=== PATIENT | female | born 1985 | race Caucasian/White ===

== ENCOUNTER 2018-04-10 11:28 | Emergency (ER) | payer OTHER ==
[2018-04-10 13:05] LABS: Urine Blood NEGATIVE (NEG); Urine Glucose NEGATIVE (NEG); Urine Protein NEGATIVE (NEG); Urine pH 6.5 (5.0-7.0)
--- NOTE | 2018-04-10 13:05 | RAD REPORT ---
EXAM DESCRIPTION: RAD - Ankle Left 3 View -04/10/2018 12:45 pm CLINICAL HISTORY: Left ankle pain status post injury FINDINGS: No fracture or dislocation is seen.
--- NOTE | 2018-04-10 14:07 | EDPHYS ---
Physician Documentation [facility] Name: Stephanie Crandall Age: 32 yrs Sex: Female : 1985 Arrival Date: 04/10/2018 Time: 11:30 Bed 12 Private MD: Vaibhav Frankel C ED Physician Keny Grey HPI: 04/10 12:43 This 32 yrs old Female presents to ER via Wheelchair with complaints of Ankle jmm Injury. 12:43 The patient presents with an injury, pain. Onset: The symptoms/episode began/occurred jmm acutely, just prior to arrival. This is a 32 year old female currently 17 weeks IUP that presents to the ED with left ankle pain. Patient states she rolled her ankle and felt a pop. . 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 - Social history:: Smoking status: Patient/guardian denies using tobacco, Patient/guardian denies using alcohol. - Ebola Screening: : No symptoms or risks identified at this time. ROS: 12:43 Constitutional: Negative for fever, chills, and weight loss. jmm 12:43 MS/extremity: Positive for pain. 12:43 All other systems are negative. Exam: 12:43 Head/Face: atraumatic. jmm 12:43 Constitutional: The patient appears in no acute distress, alert, awake. 12:43 Cardiovascular: Rate: normal. 12:43 Respiratory: the patient does not display signs of respiratory distress, Respirations: normal. 12:43 Musculoskeletal/extremity: pain on palpation of the left lateral malleolus, no pain on palpation at the base of the 5th metatarsal, full dorsalis pedis pulse. 12:43 Skin: Appearance: Color: normal in color. 12:43 Neuro: Orientation: is normal, Mentation: is normal, Memory: is normal. 12:43 Psych: Behavior/mood is pleasant, cooperative. Vital Signs: 11:41 BP 121 / 82; Pulse 104; Resp 18; Temp 98.2; Pulse Ox 100% ; Weight 71.67 kg; Height 5 sv ft. 6 in. (167.64 cm); Pain 0/10; 11:41 Body Mass Index 25.50 (71.67 kg, 167.64 cm) sv Procedures: 13:30 Splinting: Splint applied to left lateral ankle using Ortho 3D boot, applied by nurse. arturo Examined by me, post splint application: neurovascular intact, 2+ distal pulses palpable, brisk capillary refill noted, Patient tolerated well. MDM: 12:35 Patient medically screened. [facility] 12:48 Data reviewed: vital signs, nurses notes. [facility] 13:30 Data reviewed: radiologic studies, plain films. Counseling: I had a detailed discussion arturo with the patient and/or guardian regarding: the historical points, exam findings, and any diagnostic results supporting the discharge/admit diagnosis, the presence of at least one elevated blood pressure reading (>120/80) during this emergency department visit, radiology results, the need for outpatient follow up, to return to the emergency department if symptoms worsen or persist or if there are any questions or concerns that arise at home. 04/10 12:57 Order name: Urine Dipstick--Ancillary (enter results); Complete Time: 13:05 bd 04/10 12:57 Order name: Urine --Ancillary (enter results); Complete Time: 13:05 bd 04/10 11:42 Order name: Ankle Left 3 View XRAY; Complete Time: 13:06 sv 04/10 13:07 Order name: Splint; Complete Time: 14:25 [facility] Administered Medications: No medications were administered Disposition: 16:50 Co-signature as Attending Physician, Keny Grey MD. rn Disposition: 04/10/18 14:06 Discharged to Home. Impression: Sprain of ankle. - Condition is Stable. - Discharge Instructions: Ankle Sprain. - Work release form, Medication Reconciliation Form, Thank You Letter, Antibiotic Education, Prescription Opioid Use, Family Work Release form. - Follow up: Kyler Fuentes MD; When: 2 - 3 days; Reason: Continuance of care. Signatures: Dispatcher [employer] Fior Luna RN RN sv Mickail, Joel, PA PA jmm Williams, Irene, RN RN iw Nieto, Roman, MD MD rn perioperative: (The following items were deleted from the chart) 14:25 14:06 04/10/2018 14:06 Discharged to Home. Impression: Sprain of ankle. Condition is iw Stable. Forms are Medication Reconciliation Form, Thank You Letter, Antibiotic Education, Prescription Opioid Use. Follow up: Kyler Fuentes; When: 2 - 3 days; Reason: Continuance of care. arturo
--- NOTE | 2018-04-10 14:07 | ER ---
Nurse's Notes [facility] Name: Stephanie Crandall Age: 32 yrs Sex: Female : 1985 Arrival Date: 04/10/2018 Time: 11:30 Bed 12 Private MD: Vaibhav Frankel C Diagnosis: Sprain of ankle Presentation: 04/10 11:39 Presenting complaint: Patient states: tripped into a hole and c/o left ankle pain. Pt sv fell onto her buttocks. Pt is 17 weeks , denies abd pain or injury. Transition of care: patient was not received from another setting of care. Onset of symptoms was April 10, 2018. Risk Assessment: Do you want to hurt yourself or someone else? Patient reports no desire to harm self or others. Initial Sepsis Screen: Does the patient meet any 2 criteria? No. Patient's initial sepsis screen is negative. Does the patient have a suspected source of infection? No. Patient's initial sepsis screen is negative. Care prior to arrival: None. 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 - Social history:: Smoking status: Patient/guardian denies using tobacco, Patient/guardian denies using alcohol. - Ebola Screening: : No symptoms or risks identified at this time. Screenin:36 Abuse screen: Denies threats or abuse. Denies injuries from another. Nutritional iw screening: No deficits noted. Tuberculosis screening: No symptoms or risk factors identified. Fall Risk None identified. Assessment: 12:36 General: Appears in no apparent distress. Behavior is calm, cooperative. Pain: iw Complains of pain in left lateral ankle. Neuro: Level of Consciousness is awake, alert, obeys commands, Oriented to person, place, time, situation, Moves all extremities. Full function. Cardiovascular: Patient's skin is warm and dry. Respiratory: Respiratory effort is even, unlabored, Respiratory pattern is regular, symmetrical. Derm: Skin is pink, warm \T\ dry. normal. Musculoskeletal: Range of motion: intact in all extremities, Reports pain in left lateral ankle. Vital Signs: 11:41 BP 121 / 82; Pulse 104; Resp 18; Temp 98.2; Pulse Ox 100% ; Weight 71.67 kg; Height 5 sv ft. 6 in. (167.64 cm); Pain 0/10; 11:41 Body Mass Index 25.50 (71.67 kg, 167.64 cm) sv ED Course: 11:30 Patient arrived in ED. mr 11:30 Vaibhav Frankel MD is Private Physician. mr 11:40 Triage completed. sv 11:42 Arm band placed on right wrist. sv 12:23 Edwin Espinosa PA is PHCP. jmm 12:23 Keny Grey MD is Attending Physician. jmm 12:25 Adamaris Lang, RN is Primary Nurse. iw 12:37 No provider procedures requiring assistance completed. Patient did not have IV access iw during this emergency room visit. 12:44 Ankle Left 3 View XRAY In Process Unspecified. EDMS 12:46 X-ray completed. Portable x-ray completed in exam room. Patient tolerated procedure mh1 well. 14:06 Kyler Fuentes MD is Referral Physician. jmm 14:24 Patient has correct armband on for positive identification. iw Administered Medications: No medications were administered Outcome: 14:06 Discharge ordered by . jmm 14:24 Discharged to home ambulatory. iw 14:24 Condition: good 14:24 Discharge instructions given to patient, Instructed on discharge instructions, follow up and referral plans. Demonstrated understanding of instructions, follow-up care. 14:25 Patient left the ED. iw Signatures: Dispatcher [employer] Fior uLna, RN RN Edwin Espinosa PA PA jmm Rivera, Maria Lizzy Hardin 1 Adamaris Lang, VALERIA RN iw
== END 2018-04-10 14:25 | disposition home or self-care (01) ==
LOC: ER 11:28
DX: S93.402A Sprain of unspecified ligament of left ankle, initial encounter (principal); W01.0XXA Fall on same level from slipping, tripping and stumbling without subsequent striking against object, initial encounter; Y93.9 Activity, unspecified; Y92.9 Unspecified place or not applicable; Z3A.17 17 weeks gestation of pregnancy
CPT/HCPCS: 81003; 81025; 99283

== ENCOUNTER 2019-02-15 07:19 | Emergency (ER) | payer OTHER ==
--- OUTSIDE RECORDS SUMMARY | 2019-02-15 07:22 | XMS REPORT ---
:1985 [facility] [address] [place] [address] Care Team Providers Name Role Phone Unavailable Unavailable Unavailable Payers Payer Name Policy Type Policy Number Effective Date Expiration Date Problems This patient has no known problems. Allergies, Adverse Reactions, Alerts Allergy Allergy Status Severity Reaction(s) Onset Inactive Treating Comments Name Type Date Date Clinician No Known DA Active U 2018-09 Allergies -07 00:00:0 0 Medications This patient has no known medications.
[2019-02-15 07:52] LABS: Absolute Lymphocytes (CBC) 0.7 K/uL (0.7-4.9); Absolute Monocytes 0.6 K/uL (0.1-1.3); Absolute Neutrophil 9.6 K/uL (1.8-8.0); Basophils % 0.1 % (0-1.3); Eosinophils % 0.1 % (0-4.4); Hematocrit 44.9 % (36.0-45.0); Lymphocytes % 6.6 % (15.3-44.8); MPV 8.8 fL (7.6-11.3); Monocytes % 5.2 % (3.3-12.3); RBC Red Blood Cell Count 5.44 M/uL (3.86-4.86)
[2019-02-15] MEDS ORDERED: ONDANSETRON 4 MG/2 ML VIAL ONE (07:52)
[2019-02-15] MEDS ORDERED: NA CHLORIDE 0.9% 1,000 ML ONE (07:52)
[2019-02-15 08:08] LABS: BUN Blood Urea Nitrogen 11 mg/dL (7-18); Bicarbonate 24 mmol/L (21-32); Glucose Level 89 mg/dL (74-106); Potassium 3.7 mmol/L (3.5-5.1); Sodium Level 138 mmol/L (136-145)
[2019-02-15 09:01] LABS: Blood Morphology Comment NOT SEEN (NOT SEEN); Platelet Estimate ADEQ; Urine White Blood Cell Casts OK
[2019-02-15 09:19] LABS: Urine Blood NEGATIVE (NEG); Urine Glucose NEGATIVE (NEG); Urine Protein NEGATIVE (NEG); Urine Specific Gravity <1.005 (1.005-1.030); Urine pH 5.5 (5.0-7.0)
--- NOTE | 2019-02-15 09:21 | EDPHYS ---
Physician Documentation [facility] Name: Stephanie Crandall Age: 33 yrs Sex: Female : 1985 Arrival Date: 02/15/2019 Time: 07:21 Bed 6 Private MD: Vaibhav Frankel C ED Physician Keny Grey HPI: 02/15 09:15 This 33 yrs old Female presents to ER via Ambulatory with complaints of Flu kb Symptoms. 09:16 The patient or guardian reports flu symptoms, myalgias. Onset: The symptoms/episode kb began/occurred this morning. Severity of symptoms: At their worst the symptoms were moderate, in the emergency department the symptoms are unchanged. Modifying factors: The symptoms are alleviated by nothing, the symptoms are aggravated by nothing. Associated signs and symptoms: Pertinent positives: nausea, Pertinent negatives: chest pain, diarrhea, ear ache, fever, rhinorrhea, sore throat, vomiting. The patient has not experienced similar symptoms in the past. The patient has not recently seen a physician. Pt reports she started feeling sick yesterday, woke up this morning with body aches, nausea and chills. States "It seems like mono symptoms." Denies fever, vomiting, diarrhea, cough, congestion, urinary symptoms. . 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 - Social history:: Smoking status: Patient/guardian denies using tobacco. - Ebola Screening: : No symptoms or risks identified at this time. ROS: 09:15 ENT: Negative for injury, pain, and discharge, Neck: Negative for injury, pain, and kb swelling, Cardiovascular: Negative for chest pain, palpitations, and edema, Respiratory: Negative for shortness of breath, cough, wheezing, and pleuritic chest pain, Back: Negative for injury and pain, MS/Extremity: Negative for injury and deformity, Skin: Negative for injury, rash, and discoloration, Neuro: Negative for headache, weakness, numbness, tingling, and seizure. 09:15 Constitutional: Positive for body aches, chills, Negative for fatigue, fever, malaise, poor PO intake. 09:15 Abdomen/GI: Positive for nausea, Negative for abdominal pain, vomiting, diarrhea. Exam: 09:12 Constitutional: This is a well developed, well nourished patient who is awake, alert, kb and in no acute distress. Head/Face: Normocephalic, atraumatic. ENT: Nares patent. No nasal discharge, no septal abnormalities noted. Tympanic membranes are normal and external auditory canals are clear. Oropharynx with no redness, swelling, or masses, exudates, or evidence of obstruction, uvula midline. Mucous membranes moist. Neck: Trachea midline, no thyromegaly or masses palpated, and no cervical lymphadenopathy. Supple, full range of motion without nuchal rigidity, or vertebral point tenderness. No Meningismus. Chest/axilla: Normal chest wall appearance and motion. Nontender with no deformity. No lesions are appreciated. Cardiovascular: Regular rate and rhythm with a normal S1 and S2. No gallops, murmurs, or rubs. Normal PMI, no JVD. No pulse deficits. Respiratory: Lungs have equal breath sounds bilaterally, clear to auscultation and percussion. No rales, rhonchi or wheezes noted. No increased work of breathing, no retractions or nasal flaring. Abdomen/GI: Soft, non-tender, with normal bowel sounds. No distension or tympany. No guarding or rebound. No evidence of tenderness throughout. Skin: Warm, dry with normal turgor. Normal color with no rashes, no lesions, and no evidence of cellulitis. MS/ Extremity: Pulses equal, no cyanosis. Neurovascular intact. Full, normal range of motion. Neuro: Awake and alert, GCS 15, oriented to person, place, time, and situation. Cranial nerves II-XII grossly intact. Motor strength 5/5 in all extremities. Sensory grossly intact. Cerebellar exam normal. Normal gait. Vital Signs: 07:28 BP 130 / 99; Pulse 129; Resp 16 S; Temp 99.0(O); Pulse Ox 99% on R/A; Weight 72.57 kg aa5 (R); Height 5 ft. 5 in. (165.10 cm) (R); Pain 5/10; 09:00 BP 104 / 71; Pulse 99; Resp 16 S; Temp 99.1(O); Pulse Ox 99% on R/A; Pain 5/10; aa5 07:28 Body Mass Index 26.63 (72.57 kg, 165.10 cm) aa5 MDM: 07:24 Patient medically screened. kb 09:12 Data reviewed: vital signs, nurses notes. Data interpreted: Pulse oximetry: on room air kb is 99 %. Interpretation: normal. Counseling: I had a detailed discussion with the patient and/or guardian regarding: the historical points, exam findings, and any diagnostic results supporting the discharge/admit diagnosis, lab results, the need for outpatient follow up, a family practitioner, to return to the emergency department if symptoms worsen or persist or if there are any questions or concerns that arise at home. 02/15 07:29 Order name: CBC with Diff; Complete Time: 09:03 kb 02/15 07:29 Order name: Basic Metabolic Panel; Complete Time: 08:11 kb 02/15 07:29 Order name: Maries Screen Profile; Complete Time: 08:32 kb 02/15 07:29 Order name: Flu; Complete Time: 08:11 kb 02/15 07:58 Order name: CBC Smear Scan; Complete Time: 09:03 EDMS 02/15 08:08 Order name: Urine Dipstick--Ancillary (enter results); Complete Time: 09:22 bd 02/15 07:29 Order name: IV Start; Complete Time: 07:45 kb 02/15 07:29 Order name: Urine Dipstick-Ancillary (obtain specimen); Complete Time: 08:11 kb 02/15 08:09 Order name: Test, Serum; Complete Time: 08:46 ss 02/15 09:27 Order name: PO challenge; Complete Time: 09:51 kb Administered Medications: 08:00 Drug: NS 0.9% 1000 ml Route: IV; Rate: 1000 ml; Site: right antecubital; aa5 08:00 Drug: Zofran 4 mg Route: IVP; Site: right antecubital; aa5 Disposition: 02/15/19 09:20 Discharged to Home. Impression: Dehydration. - Condition is Stable. - Discharge Instructions: Dehydration, Adult. - Prescriptions for Zofran 4 mg Oral Tablet - take 1 tablet by ORAL route every 6 hours As needed; 20 tablet. - Medication Reconciliation Form, Thank You Letter, Antibiotic Education, Prescription Opioid Use, Work release form form. - Follow up: Emergency Department; When: As needed; Reason: Worsening of condition. Follow up: Private Physician; When: 2 - 3 days; Reason: Recheck today's complaints, Continuance of care, Re-evaluation by your physician. Signatures: Dispatcher [employer] EDSally Matute, ADELA-Viridiana CHAPMAN-Kyler Guillen RN RN Lyssa Aponte RN RN aa5 Corrections: (The following items were deleted from the chart) 08:11 07:29 Urine Test ordered. natasha aa5 09:57 09:20 02/15/2019 09:20 Discharged to Home. Impression: Dehydration. Condition is sg Stable. Forms are Medication Reconciliation Form, Thank You Letter, Antibiotic Education, Prescription Opioid Use. Follow up: Emergency Department; When: As needed; Reason: Worsening of condition. Follow up: Private Physician; When: 2 - 3 days; Reason: Recheck today's complaints, Continuance of care, Re-evaluation by your physician. kb
--- NOTE | 2019-02-15 09:21 | ER ---
Nurse's Notes [facility] Name: Stephanie Crandall Age: 33 yrs Sex: Female : 1985 Arrival Date: 02/15/2019 Time: 07:21 Bed 6 Private MD: Vaibhav Frankel C Diagnosis: Dehydration Presentation: 02/15 07:23 Presenting complaint: Patient states: "yesterday I felt nauseated and just didn't feel aa5 good but today I woke up with body aches and my whole back hurts". Pt denies urinary symptoms, denies sore throat, cough, and congestion. Reports chills yesterday. 07:23 Transition of care: patient was not received from another setting of care. Onset of aa5 symptoms was February 14, 2019. Risk Assessment: Do you want to hurt yourself or someone else? Patient reports no desire to harm self or others. Care prior to arrival: None. 07:23 Acuity: AIME 3 aa5 07:23 Method Of Arrival: Ambulatory aa5 07:23 Initial Sepsis Screen: Does the patient meet any 2 criteria? HR > 90 bpm. Does the aa5 patient have a suspected source of infection? No. Patient's initial sepsis screen is negative. 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 - Social history:: Smoking status: Patient/guardian denies using tobacco. - Ebola Screening: : No symptoms or risks identified at this time. Assessment: 07:25 General: Appears comfortable, Behavior is calm, cooperative. Pain: Complains of pain in aa5 whole body and back Pain currently is 5 out of 10 on a pain scale. Quality of pain is described as aching, Pain began this morning Is continuous. Neuro: Level of Consciousness is awake, alert, obeys commands, Oriented to person, place, time, situation. Cardiovascular: Heart tones S1 S2 present Rhythm is regular. Respiratory: Airway is patent Respiratory effort is even, unlabored, Respiratory pattern is regular, symmetrical, Breath sounds are clear bilaterally. GI: Abdomen is round Bowel sounds present X 4 quads. Abd is soft X 4 quads Reports nausea, Patient currently denies vomiting. : Denies burning with urination, urinary frequency, urgency. EENT: No signs and/or symptoms were reported regarding the EENT system. Derm: Skin is pink, warm \\T\\ dry. Musculoskeletal: Range of motion: intact in all extremities. 09:06 Reassessment: Patient is alert, oriented x 3, equal unlabored respirations, skin aa5 warm/dry/pink. Awaiting disposition. Vital Signs: 07:28 BP 130 / 99; Pulse 129; Resp 16 S; Temp 99.0(O); Pulse Ox 99% on R/A; Weight 72.57 kg aa5 (R); Height 5 ft. 5 in. (165.10 cm) (R); Pain 5/10; 09:00 BP 104 / 71; Pulse 99; Resp 16 S; Temp 99.1(O); Pulse Ox 99% on R/A; Pain 5/10; aa5 07:28 Body Mass Index 26.63 (72.57 kg, 165.10 cm) aa5 ED Course: 07:21 Patient arrived in ED. as 07:21 Vaibhav Frankel MD is Private Physician. as 07:21 Sally Jules FNP-C is [facility]. kb 07:21 Keny Grey MD is Attending Physician. kb 07:23 Arm band placed on Patient placed in an exam room, on a stretcher. aa5 07:29 Lyssa Caro RN is Primary Nurse. aa5 07:34 Triage completed. aa5 07:42 Initial lab(s) drawn, by mn, sent to lab. Inserted saline lock: 20 gauge in right dh3 antecubital area, using aseptic technique. Blood collected. 09:02 Primary Nurse role handed off by Lyssa Caro RN 09:02 Kyler Atkins, RN is Primary Nurse. sg 09:09 Report given to Kyler Atkins RN. aa5 09:28 Diet: Patient given water. sg Administered Medications: 08:00 Drug: NS 0.9% 1000 ml Route: IV; Rate: 1000 ml; Site: right antecubital; aa5 08:00 Drug: Zofran 4 mg Route: IVP; Site: right antecubital; aa5 Outcome: 09:20 Discharge ordered by . kb 09:57 Patient left the ED. sg Signatures: Sally Jules, ROBSON CHAPMAN-Kyler Guillen RN RN Dottie Ross Audri, RN RN aa5 Angi Wills 3
== END 2019-02-15 09:57 | disposition home or self-care (01) ==
LOC: ER 07:19
DX: E86.0 Dehydration (principal); R11.0 Nausea
CPT/HCPCS: 36415; 80048; 81003; 84703; 85025; 86308; 87804; J2405; J7030

== ENCOUNTER 2022-02-11 20:12 | Emergency (ER) | payer OTHER ==
--- OUTSIDE RECORDS SUMMARY | 2022-02-11 20:16 | XMS REPORT | Continuity of Care Document ---
:1985 Author Organization [facility] t Address [address] [place] [address] Care Team Providers Name Role Phone Unavailable Unavailable Unavailable Payers Payer Name Policy Type Policy Number Effective Date Expiration Date S ource Problems This patient has no known problems. Allergies, Adverse Reactions, Alerts Allergy Allergy Status Severity Reaction(s) Onset Inactive Treating Comm ents Source Name Type Date Date Clinician No Known DA Active U 2019-0 [facility] [place] [facility] No Known DA Active U 2017- [facility] [place] [facility] Medications This patient has no known medications. Procedures This patient has no known procedures. Results Test Description Test Time Test Comments Results Result [facility] e Comments - MRI [facility] 2019-04-29 Patient Name: W/CONTRAST LT 13:14:00 VANESSA SHAFER Unit No: [id number] EXAMS: CPT CODE: [id number] MRI LW JNT W/[place] [address] MRI ARTHROGRAM LEFT HIP DIAGNOSIS: 1. There is moderate to marked attenuation and irregularity of the anterior labrum with irregular signal undermining the anterior labrum compatible with a moderately displaced tear. There is a minimally displaced discrete superior labral tear. INDICATION: Left hip pain COMPARISON: None PULSE SEQUENCES: Multiplanar, multisequence MRI is obtained for left hip post arthrography. There is satisfactory contrast distention of the left hip joint. Acetabular labral tear as described. The ligamentum teres and transverse ligaments are intact. Articular surfaces are smooth. No aggressive osseous lesion or acute fracture. The iliopsoas, rectus femoris, gluteal, and hamstring tendons are normal. No muscle belly atrophy or edema. No iliopsoas or trochanteric bursal fluid to suggest bursitis. No evidence of ischiofemoral impingement. The visualized pelvic structures are normal. There are no regional soft tissue abnormalities or aggressive osseous lesions. LEFT HIP ARTHROGRAM WITH INTRA-ARTICULAR STEROID INJECTION Comment: After informed consent was obtained a 25-gauge needle is inserted into the left hip joint under fluoroscopic control using sterile technique. A total volume of 8 mL consisting of a combination of equal parts Isovue-300 and dilute gadolinium is instilled into the joint space. This is followed by intra-articular injection of 2 mL of Kenalog 40 mg/mL and 2 mL of lidocaine. The patient tolerated the procedure well. 0.5 minutes of fluoroscopy time was used on this exam. Post arthrographic films show no extravasation of contrast outside the joint. at 1314 Reported and signed by: Annabelle Rosas MD [facility] NAME: VANESSA SHAFER [address] [facility] PHYS: GOMMU. - Frances Dorman : 1985 AGE: 33 SEX: F [place], [place] [address] LOC: Y.RAD PHONE #: [phone] EXAM DATE: 04/29/2019 STATUS: REG CLI FAX #: [phone] RAD #: D/C DT PAGE 1 Signed Report (CONTINUED) Patient Name: VANESSA SHAFER Unit No: [id number] EXAMS: CPT CODE: [id number] MRI LW JNT W/[place] [address] <Continued> CC: Frances Dorman MD Technologist: Cary Medrano RRosiTRosi(R) Transcribed D/ (9829) [email or web address] [facility] NAME: VANESSA SHAFER [address] [facility] PHYS: GOMMU. - Frances Dorman : 1985 AGE: 33 SEX: F [place], [place] [address] LOC: Y.RAD PHONE #: [phone] EXAM DATE: 04/29/2019 STATUS: REG CLI FAX #: [phone] RAD #: D/C DT PAGE 2 Signed Report Patient Name: VANESSA SHAFER Unit No: [id number] EXAMS: CPT CODE: [id number] MRI LW JNT W/[place] [address] <Continued> Orig Print D/T: S: 04/29/2019 (1317) [facility] NAME: VANESSA SHAFER [address] [facility] PHYS: [email or web address] - Gombera,Mufaddal M : 1985 AGE: 33 SEX: F [place] [address] LOC: Y.RAD PHONE #: [phone] EXAM DATE: 04/29/2019 STATUS: REG CLI FAX #: [phone] RAD #: D/C DT PAGE 3 Signed Report - XR ARTHROGRAM 2019-04-29 Patient Name: HIP W/O AN LT+ 13:14:00 VANESSA SHAFER Unit No: [id number] EXAMS: CPT CODE: [id number] XR ARTHROGRAM HIP W/O AN LT+ 15898 MRI ARTHROGRAM LEFT HIP DIAGNOSIS: 1. There is moderate to marked attenuation and irregularity of the anterior labrum with irregular signal undermining the anterior labrum compatible with a moderately displaced tear. There is a minimally displaced discrete superior labral tear. INDICATION: Left hip pain COMPARISON: None PULSE SEQUENCES: Multiplanar, multisequence MRI is obtained for left hip post arthrography. There is satisfactory contrast distention of the left hip joint. Acetabular labral tear as described. The ligamentum teres and transverse ligaments are intact. Articular surfaces are smooth. No aggressive osseous lesion or acute fracture. The iliopsoas, rectus femoris, gluteal, and hamstring tendons are normal. No muscle belly atrophy or edema. No iliopsoas or trochanteric bursal fluid to suggest bursitis. No evidence of ischiofemoral impingement. The visualized pelvic structures are normal. There are no regional soft tissue abnormalities or aggressive osseous lesions. LEFT HIP ARTHROGRAM WITH INTRA-ARTICULAR STEROID INJECTION Comment: After informed consent was obtained a 25-gauge needle is inserted into the left hip joint under fluoroscopic control using sterile technique. A total volume of 8 mL consisting of a combination of equal parts Isovue-300 and dilute gadolinium is instilled into the joint space. This is followed by intra-articular injection of 2 mL of Kenalog 40 mg/mL and 2 mL of lidocaine. The patient tolerated the procedure well. 0.5 minutes of fluoroscopy time was used on this exam. Post arthrographic films show no extravasation of contrast outside the joint. at 4368 Reported and signed by: Annabelle Rosas MD [facility] NAME: VANESSA SHAFER [address] [facility] PHYS: [email or web address].Caio - Frances Dorman : 1985 AGE: 33 SEX: F [place] [address] LOC: Y.RAD PHONE #: [phone] EXAM DATE: 04/29/2019 STATUS: REG CLI FAX #: [phone] RAD #: D/C DT PAGE 1 Signed Report (CONTINUED) Patient Name: VANESSA SHAFER Unit No: [id number] EXAMS: CPT CODE: [id number] XR ARTHROGRAM HIP W/O AN LT+ 82063 <Continued> CC: Frances Dorman MD Technologist: Daily Bentley RT.(R) Transcribed D/ (8089) [email or web address] [facility] NAME: VANESSA SHAFER [address] [facility] PHYS: GOMMU. - Frances Dorman : 1985 AGE: 33 SEX: F [place] [address] LOC: Y.RAD PHONE #: [phone] EXAM DATE: 04/29/2019 STATUS: REG CLI FAX #: [phone] RAD #: D/C DT PAGE 2 Signed Report Patient Name: VANESSA SHAFER Unit No: [id number] EXAMS: CPT CODE: [id number] XR ARTHROGRAM HIP W/O AN LT+ [address]113 <Continued> Orig Print D/T: S: 04/29/2019 (1317) [facility] NAME: VANESSA SHAFER [address] [facility] PHYS: GOMMU.Caio - MayojazzriaFrances : 1985 AGE: 33 SEX: F [place], [place] [address] LOC: Y.RAD PHONE #: [phone] EXAM DATE: 04/29/2019 STATUS: REG CLI FAX #: [phone] RAD #: D/C DT PAGE 3 Signed Report PLACENTA THIRD 2018-09-30 TRIMESTER 13:37:00 ----RUN DATE: 09/30/18 [facility] PAGE 1 RUN TIME: 1913 Specimen Inquiry RUN USER: INTERFACE ----PATIENT: [facility]ANES[facility]AFER [facility] #: [id number] AGE/SX: 32/F ROOM: [facility] RE09/25/18REG DR: Fior Cartagena MD : [birth year] BED: A DIS: 09/30/18 STATUS: DIS IN TLOC: ---- SPEC #: [id number] RECD: 09/26/18 STATUS: FREDO BARRIOS #: [id number] [place]: 09/26/18- SUBM DR: Fior Cartagena MD ENTERED: 09/28/18 SP TYPE: PLACIII OTHR DR: ORDERED: LEVEL V SURGICA CODES: [id number] - PLACENTA, NOS PROCEDURES: LEVEL V SURGICA (Incomplete) TISSUES: PLACENTA, NOS - PLACENTA CLINICAL HISTORY 32 year old, 41.2 weeks, , chorioamnionitis (kr) FINAL DIAGNOSIS Placenta, bueno gestation: - postterm placenta - moderate acute chorioamnionitis (see comment) - mild to moderate acute funisitis (see comment) - umbilical cord: insertion 5 cm from margin, 3-vessel, 2 cm length - increased placental weight: actual 801 gm (greater than 90th percentile) Tissue code 1 CPT code(s): 06383 cds/wpd GROSS DESCRIPTION The specimen was received in a container, labeled with the patient's name, unit number and designated "placenta". The following attributes are observed: Cord insertion: 5 cm from margin Cord length: 2 cm Number of vessels: 3 Cord color: Mxtb-syv-qzizauqz green Other cord findings: None surface findings: Blue-green, and contains unremarkable blood vasculature Vasculature: Displays unremarkable blood vasculature Membranes rupture site: 0 cm to margin Membrane color: Green-cordon Other membrane findings: Thickened and opaque The trimmed placental weight: 801 gm CONTINUED ON NEXT PAGE ----RUN DATE: 09/30/18 [facility] PAGE 2 RUN TIME: 1913 Specimen Inquiry RUN USER: INTERFACE ----SPEC #: [id number] PATIENT: VANESSA SHAFER #[id number] (Continued) GROSS DESCRIPTION (Continued) Disk measurement: 24 x 20 x 3.8 cm in greatest dimension Accessory lobes: None Maternal surface: Lobulated and intact Parenchyma: Red, beefy, and spongy Parenchyma lesions: The placenta contains peripheral cordon, firm lesions measuring up to 0.6 cm involving less than 5% of the total placental tissue (in C) Cassettes: A through D brian/farhan 09/23/18 @ 0121 MICROSCOPIC DESCRIPTION Villous architecture is late third trimester with prominent perivillous fibrin deposition and focal calcification. Moderate acute chorioamnionitis is present with moderate acute funisitis. Intervillous fibrin thrombus is identified. COMMENT: Inflammatory changes correspond to: Maternal inflammatory response: Stage 2 - intermediate, Grade 1 - mild to moderate inflammatory response: Stage 2 - intermediate, Grade 1 - mild to moderate cds/wpd Signed Paul Gutierrez 09/30/18 1337 ---- END OF REPORT
--- NOTE | 2022-02-11 22:04 | RAD REPORT ---
EXAM DESCRIPTION: CT - CTHCSPWOC - 02/11/2022 9:53 pm CLINICAL HISTORY: Trauma, head and neck injury. headache from fall COMPARISON: No comparisons TECHNIQUE: Axial 5 mm thick images of the head were obtained. Axial 2 mm thick images of the cervical spine were obtained with sagittal and coronal reconstruction images generated and reviewed. All CT scans are performed using dose optimization technique as appropriate and may include automated exposure control or mA/KV adjustment according to patient size. FINDINGS: CT HEAD WITHOUT CONTRAST: No acute hemorrhage, hydrocephalus or extra-axial collection is identified.No areas of brain edema or midline shift. Mucous retention cysts in the maxillary sinuses.The calvarium is intact. CT CERVICAL SPINE WITHOUT CONTRAST: No fracture or subluxation.No prevertebral soft tissues swelling is identified. IMPRESSION: No acute intracranial or cervical spine findings.
--- NOTE | 2022-02-11 22:19 | EDPHYS ---
Physician Documentation [facility] Name: Stephanie Crandall Age: 36 yrs Sex: Female : 1985 Arrival Date: 02/11/2022 Time: 20:15 Bed 12 Private MD: ED Physician David Perea HPI: 02/11 21:30 This 36 yrs old Female presents to ER via Ambulatory with complaints of Fall Injury. cp 21:30 Details of fall: The patient fell from an upright position, while walking, and struck a cp tile surface. Onset: The symptoms/episode began/occurred today, about 2 hours ago. Associated injuries: The patient sustained injury to the head, pain, back. 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 - Social history:: Smoking status: Patient denies any tobacco usage or history of. ROS: 21:35 Neuro: Positive for headache, Negative for altered mental status. cp 21:35 Constitutional: Negative for body aches, chills, fever, poor PO intake. cp 21:35 Abdomen/GI: Positive for vomiting, Negative for abdominal pain, diarrhea, constipation. 21:35 Back: Positive for pain at rest, pain with movement. 21:35 All other systems are negative. Exam: 21:40 Constitutional: The patient appears in no acute distress, alert, awake, cp non-diaphoretic, non-toxic, well developed, well nourished. 21:40 Head/Face: Normocephalic, atraumatic. cp 21:40 Eyes: Periorbital structures: appear normal, Pupils: equal, round, and reactive to light and accomodation, Extraocular movements: intact throughout, Conjunctiva: normal, no exudate, no injection, Lids and lashes: appear normal, bilaterally. 21:40 ENT: External ear(s): are unremarkable, Nose: is normal, Mouth: Lips: moist, Oral mucosa: moist, Posterior pharynx: Airway: no evidence of obstruction, patent. 21:40 Neck: C-spine: vertebral tenderness, that is mild, appreciated at C6 and C7, ROM/movement: is normal, is supple, without pain, no range of motions limitations, no nuchal rigidity. 21:40 Chest/axilla: Inspection: normal. 21:40 Cardiovascular: Rate: normal, Rhythm: regular. 21:40 Respiratory: the patient does not display signs of respiratory distress, Respirations: normal, no use of accessory muscles, no retractions, labored breathing, is not present, Breath sounds: are clear throughout, no decreased breath sounds, no stridor, no wheezing. 21:40 Abdomen/GI: Inspection: abdomen appears normal, Palpation: abdomen is soft and non-tender, in all quadrants. 21:40 Back: pain, that is mild, no vertebral tenderness to palpation. 21:40 Musculoskeletal/extremity: Extremities: all appear grossly normal, with no appreciated pain with palpation. 21:40 Neuro: Orientation: to person, place \T\ time. Mentation: is normal, Cerebellar function: is grossly normal, Motor: moves all fours, strength is normal, Sensation: is normal, Gait: is steady, at a normal pace, without difficulty. Vital Signs: 20:33 BP 130 / 80; Pulse 103; Resp 16; Temp 98.1(TE); Pulse Ox 100% on R/A; Weight 72.57 kg lp1 (R); Height 5 ft. 6 in. (167.64 cm); Pain 5/10; 22:31 BP 120 / 82; Pulse 107; Resp 16 S; Pulse Ox 97% on R/A; bb 20:33 Body Mass Index 25.82 (72.57 kg, 167.64 cm) lp1 MDM: 21:08 Patient medically screened. cp 22:18 Data reviewed: vital signs, nurses notes, radiologic studies, CT scan. cp 22:18 Counseling: I had a detailed discussion with the patient and/or guardian regarding: the cp historical points, exam findings, and any diagnostic results supporting the discharge/admit diagnosis, radiology results, to return to the emergency department if symptoms worsen or persist or if there are any questions or concerns that arise at home. Special discussion: Based on the patient's history, exam and DX evaluation, there is no indication for emergent intervention or inpatient [place]. It is understood by the patient/guardian that if the SXs persist or worsen they need to return immediately for re-evaluation. 02/11 21:27 Order name: CT Head C Spine; Complete Time: 22:14 cp 02/11 22:14 Interpretation: Reviewed report. cp Administered Medications: No medications were administered Disposition Summary: 02/11/22 22:19 Discharge Ordered Location: Home cp Problem: new cp Symptoms: have improved cp Condition: Stable cp Diagnosis - Fall on same level, unspecified cp - Headache cp - Dorsalgia, unspecified cp - Cervicalgia cp Followup: cp - With: Private Physician - When: 2 - 3 days - Reason: Recheck today's complaints Discharge Instructions: - Discharge Summary Sheet cp - Acute Back Pain, Adult cp - Head Injury, Adult cp - Neck Exercises cp Forms: - Medication Reconciliation Form cp - Work release form bb - Thank You Letter cp - Antibiotic Education cp - Prescription Opioid Use cp Addendum: 02/14/2022 07:13 Co-signature as Attending Physician, David Perea MD I agree with the assessment and c collins plan of care. Signatures: Dispatcher [employer] EDDavid Galvan MD MD cha Pena, Laura, RN RN lp1 David Delgadillo PA PA cp
--- NOTE | 2022-02-11 22:19 | ER ---
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 Coronavirus screen: At this time, the client does not indicate any symptoms associated with coronavirus-19. Ebola Screen: No symptoms or risks identified at this time. Onset of symptoms was February 11, 2022. 20:31 Method Of Arrival: Ambulatory lp1 20:31 Acuity: AIME 3 lp1 20:33 Initial Sepsis Screen: Does the patient meet any 2 criteria? No. Patient's initial lp1 sepsis screen is negative. Does the patient have a suspected source of infection? No. Patient's initial sepsis screen is negative. Risk Assessment: Do you want to hurt yourself or someone else? Patient reports no desire to harm self or others. 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 - Social history:: Smoking status: Patient denies any tobacco usage or history of. Screenin:29 Abuse screen: Denies threats or abuse. Nutritional screening: No deficits noted. bb Tuberculosis screening: No symptoms or risk factors identified. Fall Risk None identified. Assessment: 21:09 General: Appears in no apparent distress. Behavior is appropriate for age. Pain: lp1 Complains of pain in back of head, right shoulder, left side of head Pain currently is 5 out of 10 on a pain scale. Quality of pain is described as aching. Neuro: Level of Consciousness is awake, alert, obeys commands, Oriented to person, place, time, situation, Gait is steady, Reports headache. Cardiovascular: Patient's skin is warm and dry. Respiratory: Respiratory effort is even, unlabored. GI: No signs and/or symptoms were reported involving the gastrointestinal system. : No signs and/or symptoms were reported regarding the genitourinary system. EENT: No signs and/or symptoms were reported regarding the EENT system. Derm: Skin is pink, warm \T\ dry. Musculoskeletal: Circulation, motion, and sensation intact. 22:29 Reassessment: Patient is alert, oriented x 3, equal unlabored respirations, skin bb warm/dry/pink. pt verbalized understanding of and agrees to plan of care discharge instructions given pt ambulated with steady gait to exit accompanied by family. Vital Signs: 20:33 BP 130 / 80; Pulse 103; Resp 16; Temp 98.1(TE); Pulse Ox 100% on R/A; Weight 72.57 kg lp1 (R); Height 5 ft. 6 in. (167.64 cm); Pain 5/10; 22:31 BP 120 / 82; Pulse 107; Resp 16 S; Pulse Ox 97% on R/A; bb 20:33 Body Mass Index 25.82 (72.57 kg, 167.64 cm) lp1 ED Course: 20:15 Patient arrived in ED. bp1 20:32 Triage completed. lp1 20:32 Arm band placed on left wrist. lp1 20:57 David Del[facility]adillo [facility]. cp 20:57 David Perea MD is Attending Physician. cp 21:41 Suzie Lorenzo, VALERIA is Primary Nurse. bb 21:54 CT Head C Spine In Process Unspecified. EDMS 22:29 Patient has correct armband on for positive identification. bb 22:29 No provider procedures requiring assistance completed. Patient did not have IV access bb during this emergency room visit. Administered Medications: No medications were administered Outcome: 22:19 Discharge ordered by . cp 22:31 Discharged to home ambulatory, with family. bb 22:31 Condition: stable 22:31 Discharge instructions given to patient, Instructed on discharge instructions, follow up and referral plans. Demonstrated understanding of instructions, follow-up care. 22:31 Patient left the ED. bb Signatures: Dispatcher [employer] EDSuzie Aldrich RN RN bb Lor Cho RN RN lp1 David Delgadillo PA PA cp [place], Brittany bp1
[2022-02-12 01:12] VITALS: TEMP 98.1
[2022-02-12 01:21] VITALS: BP 120/82; O2SAT 97
== END 2022-02-11 22:31 | disposition home or self-care (01) ==
LOC: ER 20:12
DX: M54.2 Cervicalgia (principal); R51.9 Headache, unspecified; M54.9 Dorsalgia, unspecified; W01.198A Fall on same level from slipping, tripping and stumbling with subsequent striking against other object, initial encounter; Y93.E1 Activity, personal bathing and showering; Y92.012 Bathroom of single-family (private) house as the place of occurrence of the external cause
CPT/HCPCS: 70450; 72125; 99283